=== PATIENT | male | born 1970 | race African-American/Black ===

== ENCOUNTER 2019-03-23 10:00 | Inpatient (IN) | payer OTHER ==
[2019-03-14 14:17] VITALS: BMI 35.3
--- NOTE | 2019-03-23 08:36 | HP ---
Admitting History and Physical - Admission Chief Complaint: right hip osteoarthritis x years History of Present Illness: 53 year old male presents in regard to their right hip. Long-standing history of right hip osteoarthritis. Patient complains of pain, limited range of motion , difficulty ambulating, and difficulty with activities of daily living. Patient has failed conservative treatment options including PO medications, activity modification, injections, and exercise programs. At this point, patient like to proceed with surgical intervention, right total hip arthroplasty MAKOplasty. History Source: Patient - Past Medical History Cardiovascular: Yes: HTN, Hyperlipdemia Gastrointestinal: Yes: GERD - Past Surgical History Additional Past Surgical History: See written history & physical. - Smoking History Smoking history: Former smoker Have you smoked in the past 12 months: No If you are a former smoker, when did you quit?: 2008 - Alcohol/Substance Use Hx Alcohol Use: Yes (2/DAY BEER OR WHISKEY) Home Medications - Allergies Allergies/Adverse Reactions: Allergies Allergy/AdvReac Type Severity Reaction Status Date / Time [place] And Derivatives Allergy Severe Itching Verified 03/14/19 14:09 No Known Drug Allergies Allergy Verified 03/14/19 14:08 - Home Medications Home Medications: Ambulatory Orders Atorvastatin Ca [Lipitor] 10 mg PO DAILY 03/14/19 Losartan Potassium 100 mg PO DAILY 03/14/19 Omeprazole 20 mg PO DAILY 03/14/19 Review of Systems - Review of Systems Musculoskeletal: reports: Decreased ROM (right hip), Joint Pain (right hip) Physical Examination Constitutional: Yes: Well Nourished, No Distress Eyes: Yes: Conjunctiva Clear HENT: Yes: Atraumatic Neck: Yes: Supple Cardiovascular: Yes: Regular Rate and Rhythm Respiratory: Yes: Regular Gastrointestinal: Yes: Soft ...Rectal Exam: Yes: Deferred Musculoskeletal: Yes: Joint Stiffness (right hip), Joint Swelling (right hip) Assessment/Plan 48 year old presents in regard to their right hip. Long-standing history of right hip osteoarthritis. Patient complains of pain, limited range of motion, difficulty ambulating, and difficulty with activities of daily living. Patient has failed conservative treatment options including PO medications, activity modification, injections, and exercise programs. At this point, patient like to proceed with surgical intervention, right total hip arthroplasty MAKOplasty. Pros, cons, risks, benefits, and alternatives of a right total hip arthroplasty MAKOplasty were discussed with the patient at length. Patient confirms their understanding and consents to proceed with a right total hip arthroplasty Adam.
[~2019-03-23 10:00] MED LIST: ROPIVICAINE 0.2%/MORPH PF/KETOROLAC - 51ML DISP.SYRINGE IA ONE; TRANEXAMIC ACID 1000 MG/10 ML VIAL IVPB ONE
[2019-03-23] MEDS ORDERED: GABAPENTIN 300 MG CAPSULE (FP) ONE (10:16)
[2019-03-23] MEDS ORDERED: oxyCODONE HCL 10 MG SUSTAINED ACTING TABLET ONE (10:16)
[2019-03-23] MEDS ORDERED: PANTOPRAZOLE 40 MG TABLET (FP) ONE (10:16)
[2019-03-23] MEDS ORDERED: CELECOXIB 200 MG CAPSULE ONE (10:17)
[2019-03-23] MEDS ORDERED: ceFAZolin SODIUM 1 GM VIAL ONE ×2 (10:22→15:04)
[2019-03-23] MEDS ORDERED: TRANEXAMIC ACID 1000 MG/10 ML VIAL ONE ×3 (10:22→17:14)
[2019-03-23] MEDS ORDERED: VANCOMYCIN 1,000 MG VIAL (RESTRICTED TO ID ONLY) ONE (10:22)
[2019-03-23] MEDS ORDERED: TRANEXAMIC ACID 1000 MG/10 ML VIAL IVPUSH ONE (12:00)
[2019-03-23] MEDS ORDERED: CEFAZOLIN 2 GM in DEXTROSE 5%-WATER - 50 ML IVPB ONE (12:00)
[2019-03-23] MEDS ORDERED: PANTOPRAZOLE 40 MG TABLET (FP) PO ONE (12:00)
[2019-03-23] MEDS ORDERED: oxyCODONE HCL 10 MG SUSTAINED ACTING TABLET PO ONE (12:00)
[2019-03-23] MEDS ORDERED: GABAPENTIN 300 MG CAPSULE (FP) PO ONE (12:00)
[2019-03-23] MEDS ORDERED: CELECOXIB 200 MG CAPSULE PO ONE (12:00)
[2019-03-23] MEDS ORDERED: ROPIVICAINE 0.2%/MORPH PF/KETOROLAC - 51ML DISP.SYRINGE IA ONE ×2 (13:39→17:17)
[2019-03-23] MEDS ORDERED: DEXAMETHASONE SOD PHOSPHATE/PF 10 MG/ML SDV ONE (13:44)
[2019-03-23] MEDS ORDERED: MIDAZOLAM HCL 2 MG/2 ML SINGLE DOSE VIAL ONE ×3 (13:44→16:20)
[2019-03-23] MEDS ORDERED: BUPIVACAINE HCL/PF 0.5% (5 MG/ML) 30 ML VIAL IJ ONE (13:44)
[2019-03-23] MEDS ORDERED: LIDOCAINE HCL/PF 2% SDV 5ML VIAL ONE (13:53)
[2019-03-23] MEDS ORDERED: PROPOFOL 20 ML ONE ×5 (14:52→17:10)
[2019-03-23] MEDS ORDERED: DEXAMETHASONE SOD PHOSPHATE 4 MG/1 ML VIAL ONE (15:44)
[2019-03-23] MEDS ORDERED: ONDANSETRON 4 MG/2 ML VIAL ONE (15:44)
[2019-03-23] MEDS ORDERED: VANCOMYCIN 1,000 MG VIAL (RESTRICTED TO ID ONLY) IVPB ONE (17:06)
[2019-03-23] MEDS ORDERED: METOPROLOL TARTRATE 5 MG/5 ML VIAL ONE (17:14)
[2019-03-23] MEDS ORDERED: TRANEXAMIC ACID 1000 MG/10 ML VIAL IVPB ONE (17:17)
--- NOTE | 2019-03-23 18:09 | OP ---
Operative Note - Note: Operative Date: 03/23/19 Pre-Operative Diagnosis: Right hip OA Operation: right LILLIAM MARLENY Post-Operative Diagnosis: Same as Pre-op Surgeon: Onel Bentley Fuller Brush Man: Izabella Patel Anesthesia: Spinal Estimated Blood Loss (mls): 400
[2019-03-23] MEDS ORDERED: ONDANSETRON 4 MG/2 ML VIAL IVPUSH PRN ×2 (18:15→18:27)
[2019-03-23] MEDS ORDERED: ACETAMINOPHEN INJECTION 100 ML IVPB ONE (18:15)
[2019-03-23] MEDS ORDERED: PROMETHAZINE HCL 25 MG/1 ML VIAL IVPUSH PRN (18:15)
[2019-03-23] MEDS ORDERED: oxyCODONE HCL 5 MG TABLET PO PRN ×2 (18:15)
[2019-03-23] MEDS ORDERED: traMADol HCL 50 MG TABLET ONE (18:16)
[2019-03-23] MEDS ORDERED: KETOROLAC TROMETHAMINE 30 MG/1 ML VIAL ONE (18:16)
[2019-03-23] MEDS ORDERED: ACETAMINOPHEN 1000 MG/100 ML VIAL (NON FORMULARY) IVPB ONE (18:24)
[2019-03-23] MEDS ORDERED: MAGNESIUM HYDROX 2400MG/30ML ORAL SUSPENSION 30 ML CUP PO PRN (18:27)
[2019-03-23] MEDS ORDERED: MAG HYDROX/AL HYDROX/SIMETH 30 ML UNIT-DOSE CUP PO PRN (18:27)
[2019-03-23] MEDS ORDERED: LACTATED RINGERS SOLUTION 1,000 ML IV SCH (18:30)
[2019-03-23] MEDS: KETOROLAC TROMETHAMINE 30 MG/1 ML VIAL IVPUSH SCH (18:40)
--- NOTE | 2019-03-23 18:59 | OP ---
DATE OF OPERATION: 03/23/2019 PREOPERATIVE DIAGNOSIS: Right hip osteoarthritis. POSTOPERATIVE DIAGNOSIS: Right hip osteoarthritis. PROCEDURE: Right total hip replacement with Makoplasty robotic navigation. ATTENDING: Alex Kenny M.D. ELECTROMECHANICAL EQUIPMENT ASSEMBLER: Alvaro Fields ANESTHESIA: Spinal plus sedation. ESTIMATED BLOOD LOSS: 400 mL. COMPLICATIONS: None. DISPOSITION: The patient was transferred to the PACU in stable condition. IMPLANTS USED: Bertram Accolade 2 size 8 femoral component, with 127-degree neck. [place] Trident mm acetabular component with 30 and 25 mm acetabular screws. MDM bipolar head ball with +8 mm inner offset. INDICATION: This is a 48-year-old male presented to the office complaining of severe right hip pain. He was seen and examined by Dr. Kenny, diagnosed with severe right hip osteoarthritis. The patient was initially treated nonoperatively with conservative management, but continued to have severe pain and ambulatory dysfunction. He was therefore indicated for a right total hip replacement. The risks, benefits, and alternatives to the procedure are explained to the patient in great detail, and he elected to proceed with the surgery. DESCRIPTION OF PROCEDURE: On the day of surgery, the patient was taken to the operating room and placed on the OR table. Spinal anesthesia was administered by the anesthesiologist. The patient was then positioned in the lateral decubitus position on the table and all bony prominences were padded. An axillary roll was placed. The operative hip was then prepped and draped in the usual sterile fashion and intravenous antibiotics were given for infection prophylaxis. A surgical time-out was then performed with the team, and the patients identity, procedure, side, availability of implants, and the administration of antibiotics were confirmed. An approximately 15-cm longitudinal incision was made through the skin centered on the greater trochanter of the hip. This dissection was carried down through the subcutaneous tissues to the deep fascia. This fascia was then incised and a Cobra was placed around the inferior femoral neck. Electrocautery was used to reflect the anterior 40% of the gluteus medius and minimus starting at the musculotendinous junction and leaving a cuff for closure. This was reflected to reveal the capsule of the hip joint. An anterior capsulectomy was performed and the femoral head and neck were visualized. Grade 4 changes were noted diffusely throughout the joint. At this point, three small stab incisions were made superior to the main incision along the iliac crest. Three self-drilling Steinmann pins were then placed and the [employer] pelvic array was attached. Reference points on the limb were then entered into the robotic device and the limb length deficiency, offset, and femoral neck resection level were then calculated by the software. The hip was then dislocated with traction and external rotation. An oscillating saw was used to make the femoral neck cut at the level previously templated, and the femoral head was removed. Attention was then turned to the acetabulum. Retractors were then placed around the acetabulum and the labrum was removed. An acetabular checkpoint pin and the [employer] software were used to register the contours of the acetabulum. The acetabulum was then reamed in a single stage to the preoperatively templated size using the [employer] robotic arm. The appropriately sized cup was then impacted and had solid fixation as well as the preset inclination and version of 40 and 20 degrees, respectively. A polyethylene liner was then placed in the cup. Attention was then turned back to the femur, which was externally rotated for improved visualization. A femoral neck elevator was used to present the femoral neck cut, a box osteotome was used to enter the femoral canal, and a canal finder was used to go down the femoral shaft. The Delano broaches were used sequentially until the optimal scratch fit was achieved. This correlated with the preoperatively templated size. From here, several different offset head and neck configurations were tested until excellent stability and length were obtained. These measurements were quantified using the [employer] software. All trial components were then removed, the femur was copiously irrigated, and the final components were placed. Leg length and stability were checked again and found to be excellent. Irrigation was performed again. Wound closure was started by repairing the abductor muscles with a no. 2 FiberWire stitch in a Krackow configuration passed through bone tunnels in the greater trochanter and tied over a bony bridge. This repair was then reinforced with a 0 V-Loc 180 barbed suture. Next, no. 1 Polysorb and 0 V-Loc 180 were used to close the fascia. The deep subcutaneous tissue was closed with no. 1 Polysorb sutures, and 2-0 Polysorb was used for the superficial subcutaneous tissue. The skin was closed using both 3-0 V-Loc 90 suture in a running subcuticular fashion and SwiftSet skin adhesive. The Delano array and pins were removed from the iliac crest and the stab incision sites were irrigated and closed with 4-0 Polysorb sutures and SwiftSet skin adhesive. Once this was completed, a sterile dressing was applied. The patient was then awakened and taken to the PACU in stable condition. ADDENDUM: After final implants were placed, a 3-minute dilute Betadine lavage was performed. Following this the wound was thoroughly irrigated with normal saline via pulsatile lavage, and wound closure was begun. ALEX KENNY M.D. [id number]
[2019-03-23] MEDS: traMADol HCL 50 MG TABLET PO SCH (19:00)
[2019-03-23] MEDS: CELECOXIB 200 MG CAPSULE PO SCH (21:54)
[2019-03-23] MEDS: GABAPENTIN 300 MG CAPSULE (FP) PO SCH (21:54)
[2019-03-23] MEDS: SENNOSIDES/DOCUSATE COMBO (SENNA PLUS) TABLET (UD) PO SCH (21:54)
[2019-03-23] MEDS: ASCORBIC ACID 500 MG TABLET (FP) PO SCH (21:54)
[2019-03-23] MEDS: oxyCODONE HCL 10 MG SUSTAINED ACTING TABLET PO SCH (21:55)
[2019-03-23] MEDS: ATORVASTATIN CA 10 MG TABLET (FP) PO SCH (21:55)
[2019-03-24] MEDS ORDERED: DEXAMETHASONE SOD PHOSPHATE 10 MG/1 ML VIAL IVPB ONE
[2019-03-24] MEDS: ACETAMINOPHEN 325 MG TABLET (FP) PO SCH ×5 (00:42→23:45)
[2019-03-24] MEDS: traMADol HCL 50 MG TABLET PO SCH ×5 (00:43→23:44)
[2019-03-24] MEDS: KETOROLAC TROMETHAMINE 30 MG/1 ML VIAL IVPUSH SCH ×2 (00:44→06:54)
[2019-03-24] MEDS: CEFAZOLIN 2 GM/D5W 2 GM/50 ML ML IVPB SCH ×2 (01:37→09:55)
[2019-03-24 07:18] LABS: HEMATOCRIT 34.1 % (35.4-49); HEMOGLOBIN 11.8 GM/dl (11.7-16.9); MCH 33.7 pg (25.7-33.7); MCHC 34.7 g/dl (32.0-35.9); MEAN CELL VOLUME 97.2 fl (80-96); MEAN PLT VOLUME 8.8 fl (7.5-11.1); PLATELET COUNT 276 K/MM3 (134-434); RBC 3.51 M/mm3 (4.00-5.60); RDW 12.8 % (11.9-15.9); WHITE BLOOD COUNT 10.8 K/mm3 (4.0-10.8)
[2019-03-24 07:31] LABS: CALCIUM 8.9 mg/dl (8.5-10); CREATININE 1.6 mg/dl (0.55-1.3); POTASSIUM 4.1 mmol/L (3.5-5.1)
[2019-03-24] MEDS: ASPIRIN 325 MG TABLET PO SCH (08:41)
[2019-03-24] MEDS: LOSARTAN POTASSIUM 50 MG TABLET (FP) PO SCH (09:52)
[2019-03-24] MEDS: SENNOSIDES/DOCUSATE COMBO (SENNA PLUS) TABLET (UD) PO SCH ×2 (09:53→21:49)
[2019-03-24] MEDS: CELECOXIB 200 MG CAPSULE PO SCH (09:53)
[2019-03-24] MEDS: ASCORBIC ACID 500 MG TABLET (FP) PO SCH ×2 (09:53→21:49)
[2019-03-24] MEDS: GABAPENTIN 300 MG CAPSULE (FP) PO SCH ×2 (09:54→21:49)
[2019-03-24] MEDS: oxyCODONE HCL 10 MG SUSTAINED ACTING TABLET PO SCH ×2 (09:54→21:50)
[2019-03-24] MEDS: MULTIVITAMINS (DAILY MVI) TABLET (FP) PO SCH (09:55)
[2019-03-24] MEDS: PANTOPRAZOLE 40 MG TABLET (FP) PO SCH (09:55)
[2019-03-24] MEDS ORDERED: PATIENT'S OWN MEDICATION (NON-FORMULARY) (Losartan Potassium [Losartan Potassium] 100 MG) PO SCH (10:00)
[2019-03-24] MEDS: ATORVASTATIN CA 10 MG TABLET (FP) PO SCH (21:49)
--- NOTE | 2019-03-24 23:47 | PN ---
Progress Note (short form) - Note Progress Note: Pt seen and examined. Doing well. AVSS Selected Entries 03/25/19 03/25/19 01:00 05:00 Temperature 98.2 F Pulse Rate 89 Respiratory 18 Rate Blood Pressure 125/79 O2 Sat by Pulse 95 Oximetry (%) Oxygen Delivery Room Air Method Laboratory Tests 03/24/19 03/24/19 07:05 07:05 WBC 10.8 Hgb 11.8 Hct 34.1 L Plt Count 276 Sodium 141 Potassium 4.1 Chloride 108 H Carbon Dioxide 25 Anion Gap 8 BUN 23.0 H Creatinine 1.6 H Est GFR (CKD-EPI)AfAm 57.37 Est GFR (CKD-EPI)NonAf 49.50 Random Glucose 156 H Calcium 8.9 Gen: NAD RLE: c/d/i, NVID A/P POD#1 s/p R LILLIAM FARMER PT/OOB - WBAT RLE D/C home Wednesday
[2019-03-25] MEDS: traMADol HCL 50 MG TABLET PO SCH (06:10)
[2019-03-25] MEDS: ACETAMINOPHEN 325 MG TABLET (FP) PO SCH (06:13)
[2019-03-25] MEDS: ASPIRIN 325 MG TABLET PO SCH (07:45)
[2019-03-25] MEDS: PANTOPRAZOLE 40 MG TABLET (FP) PO SCH ×2 (07:49→10:10)
--- NOTE | 2019-03-25 08:35 | DS ---
Physical Examination Vital Signs: Vital Signs Temperature 98.2 F 03/25/19 05:00 Pulse Rate 89 03/25/19 05:00 Respiratory Rate 18 03/25/19 05:00 Blood Pressure 125/79 03/25/19 05:00 O2 Sat by Pulse Oximetry (%) 95 03/25/19 01:00 Labs: CBC, BMP 03/24/19 07:05 03/24/19 07:05 Discharge Summary Reason For Visit: RIGHT HIP OSTEOARTHRITIS Current Active Problems Osteoarthritis of right hip (Acute) Procedures: Principal: right LILLIAM MARLENY Hospital Course: Admitted for elective surgery. Procedure performed without complications. Pt received postoperative antibiotic prophylaxis and DVT ppx. Ambulated with physical therapy. Stable for discharge home with outpatient followup. Condition: Stable - Instructions Diet, Activity, Other Instructions: Dr Bentley - Hip Replacement Instructions Keep the Aquacel dressing on until removed by Dr. Bentley in the office it is antibacterial and waterproof and you can shower with it on. Call the office for a follow-up appointment with Dr. Bentley on WednesdayApril 11. [phone] Take one Aspirin 325mg daily for 6 weeks to prevent blood clots in your legs. Take one Pantoprazole 40mg daily for 6 weeks to protect against heartburn and ulcers. Take Cephalexin (antibiotic) 3x/day for 10 days to help prevent skin infection. Take a multivitamin, stool softener and extra Vitamin C supplement daily. For pain: *Mild pain (1-3/10): Take 1 Tramadol tablet every 4 hours as needed. Moderate pain (4-6/10): Take 1 Tramadol tablet and 1 Percocet tablet every 4 hours as needed. Severe pain (7-10/10): Take 1 Tramadol tablet and 2 Percocet tablets every 4 hours as needed. Activity: You can put as much weight on the operative leg as you want. For the first 6 weeks, all you need to do is walk around the house, go up/down stairs, and sit down/get up. After 6 weeks when everything is healed (and bone has grown into the implant) you will be sent for more intensive outpatient physical therapy. Always use a walker or cane for balance and to prevent falls. Expect to see swelling / bruising from the operative site all the way down to your toes. Wear the Compression stocking on the operative side during the day to minimize how much swelling there is in your foot/ankle. Don't wear the stocking at night. You don't have to wear the stocking on the other side. Disposition: [facility]/HOME HEALTH CARE - Home Medications Comprehensive Discharge Medication List: Ambulatory Orders Atorvastatin Ca [Lipitor] 10 mg PO DAILY 03/14/19 Losartan Potassium 100 mg PO DAILY 03/14/19 Ascorbic Acid [Vitamin C -] 500 mg PO BID tablet 03/25/19 Aspirin [ASA -] 325 mg PO DAILY@0800 tablet 03/25/19 Cephalexin Monohydrate [Keflex -] 500 mg PO TID #30 capsule 03/25/19 Multivitamins [Multivit ([facility] Formulary)] 1 tab PO DAILY tab 03/25/19 Oxycodone HCl/Acetaminophen [Percocet 5-325 mg Tablet] 1 - 2 tab PO Q4H PRN #60 tablet MDD 10 03/25/19 Pantoprazole Sodium [Protonix -] 40 mg PO DAILY #40 tablet.ec 03/25/19 Sennosides/Docusate Sodium [Pericolace -] 2 tablet PO BID tablet 03/25/19 traMADol HCL [Ultram -] 50 mg PO Q4H PRN #60 tablet MDD 6 03/25/19
[2019-03-25] MEDS: SENNOSIDES/DOCUSATE COMBO (SENNA PLUS) TABLET (UD) PO SCH (10:00)
[2019-03-25] MEDS: MULTIVITAMINS (DAILY MVI) TABLET (FP) PO SCH (10:15)
[2019-03-25] MEDS: ASCORBIC ACID 500 MG TABLET (FP) PO SCH (10:15)
[2019-03-25] MEDS: GABAPENTIN 300 MG CAPSULE (FP) PO SCH (10:15)
[2019-03-25] MEDS: oxyCODONE HCL 10 MG SUSTAINED ACTING TABLET PO SCH (10:15)
[2019-03-25] MEDS: LOSARTAN POTASSIUM 50 MG TABLET (FP) PO SCH (10:20)
[2019-03-25 10:34] VITALS: BP 117/65; PULSE 111; TEMP 98.8
== END 2019-03-25 11:30 | disposition home health service (06) | DRG 470 ==
LOC: FM/S 10:00
PROVIDERS: ADMIT Student in an Organized Health Care Education/Training Program; ATTEND Student in an Organized Health Care Education/Training Program
PROC: 8E0W0CZ Robotic Assisted Procedure of Trunk Region, Open Approach (ICD-10-PCS; 2019-03-23)
PROC: 0SR90JA Replacement of Right Hip Joint with Synthetic Substitute, Uncemented, Open Approach (ICD-10-PCS; principal; 2019-03-23 15:13)
DX: M16.11 Unilateral primary osteoarthritis, right hip (principal); E78.5 Hyperlipidemia, unspecified; K21.9 Gastro-esophageal reflux disease without esophagitis
CPT/HCPCS: 36415; 73502-TC-RT-FY; 80048; 85027; 94760; 97116-GP; 97161-GP; J0131; J1100